=== PATIENT | male | born 2000 | race Caucasian/White ===

== ENCOUNTER 2025-01-30 20:33 | Emergency (ER) | payer BC, SELFPAY ==
[2025-01-30 20:36] VITALS: BP 115/69
--- NOTE | 2025-01-30 21:38 | ED.GENMED ---
History of Present Illness
General
Chief Complaint: Musculo-Skeletal Complaint
Source: patient
Time Seen by Provider: 01/30/25 21:28
History of Present Illness
History of Present Illness:
24-year-old male with no significant past medical history presents to the emergency department for evaluation after he jumped into the shallow air of the pool striking his nasal bridge on the bottom of the pool sustaining minor abrasion. Patient
sustained no other injury. He states no epistaxis following the event, no headaches, no visual changes, no focal weakness or numbness, no upper extremity pain, cervical spine tenderness or any other concerns. He believes his tetanus vaccine is
up-to-date.
Past History
Past History
ED Past Medical History: None
ED Past Surgical History: None
Social History
Tobacco: Vaping
Alcohol: None
Drug: None
Personal: Single
Living: with family
Employment: Employed
Family History
Family History: Negative Sudden
Review of Systems
Review of Systems
All Other Systems: ROS reviewed and negative except as documented in HPI and ROS
Phy Exam
Physical Exam
Physical Exam:
GENERAL: Alert , in no apparent distress
EYE: conjunctiva clear, pupils 4 mm bilateral
Head: Normocephalic atraumatic
NECK: Supple, no cervical spine tenderness, full range of motion
ENT: mmm. Abrasion with some mild soft tissue swelling to the nasal bridge. No active bleeding. No septal hematoma. TMs clear bilateral. No dental trauma
LUNGS: no acute respiratory distress
NEUROLOGICAL: Alert and oriented
SKIN: Warm and dry, skin intact.
MUSCULOSKELETAL: well perfused.
PSYCH: Normal and appropriate interaction.
Scores
Heart Failure Risk
Heart Failure Risk Score: Not Applicable
Heart Score for Chest Pain Patients
STEMI patient?: Not applicable
Withdrawal Assessment of Alcohol
Withdrawal Assessment Completed?: Not applicable
Course
Vital Signs
Initial and Last Documented VS:
Initial Vital Signs
Temp Pulse Resp BP Pulse Ox
98.3 F 80 16 115/69 99
01/30/25 20:36 01/30/25 20:36 01/30/25 20:36 01/30/25 20:36 01/30/25 20:36
Last Documented Vital Signs
Temp Pulse Resp BP Pulse Ox
98.3 F 80 16 115/69 99
01/30/25 20:36 01/30/25 20:36 01/30/25 20:36 01/30/25 20:36 01/30/25 21:39
MDM/Problems Addressed
Differential Diagnosis Includes:
- Abrasion
- Contusion
- Nasal fracture
- Cervical spine injury
- Concussion
- Intracranial bleeding
MDM/Problems Addressed:
24-year-old male presenting to the ER for evaluation following injury to the nasal bridge when he jumped into a pool. Patient otherwise asymptomatic and without any other concerns. Discussed imaging with the patient and ultimately patient decided
he wished to forego imaging which I think is reasonable. We discussed nasal fracture precautions as well as following up with the ENT if he has any further concerns. Motrin/Tylenol as needed for pain. Otherwise stable for discharge home.
*Pulse Oximetry
SaO2: 99
Oxygen Mode of Delivery: Room air
Patient hypoxic: no
*Critical Care Note
Total Time (30-74mins, 75-104mins- exclusive of procedures): Not Applicable
ED Attending Note
-
Portions of this chart may have been created with voice recognition software.� Occasional wrong word or��sound alike� substitutions may have occurred due to the inherent limitations of voice recognition software.
Discharge Plan
Departure
Patient Disposition: Home (Routine Discharge)
Date of Disposition: 01/30/25
Time of Disposition: 21:38
Patient with high blood pressure during this ER visit?: No
Discharge Problem:
Abrasion of nose
Instructions: Nose Fracture ED
Prescriptions:
No Action
cephalexin 500 MG capsule
500 mg PO TID Qty: 21 0RF
Referrals:
David Carranza MD [Active, ENT]
Discharge Date and Time
Print Language: CHINESE
== END 2025-01-30 21:52 | disposition home or self-care (01) ==
LOC: EMR 20:33
PROVIDERS: EMERGENCY PHYSICIAN Student in an Organized Health Care Education/Training Program
DX: S00.31XA Abrasion of nose, initial encounter (principal); W22.09XA Striking against other stationary object, initial encounter; Y93.39 Activity, other involving climbing, rappelling and jumping off; Y92.34 Swimming pool (public) as the place of occurrence of the external cause; F17.290 Nicotine dependence, other tobacco product, uncomplicated
CPT/HCPCS: 99282